=== PATIENT | female | born 1990 | race Caucasian/White ===

== ENCOUNTER 2018-08-25 18:21 | Emergency (ER) | payer OTHER ==
[2018-08-25] MEDS ORDERED: DIAZEPAM 5 MG TABLET PO ONE (21:05)
--- NOTE | 2018-08-25 21:07 | ER Document Report ---
HPI - HPI Patient complains to provider of: left upper back pain Time Seen by Provider: 08/25/18 20:54 Pain Level: 4 Context: Patient is a 27-year-old female that comes to the emergency department for chief complaint of left upper back pain. She states she has trouble turning her neck to the side. Symptoms started since this morning. She denies any obvious injury. She states it feels like there is a sharp spasm. She denies shortness of breath, chest pain, fever, headache, numbness. LMP within the past month. No daily medications or medical history reported. Past Medical History - General Information source: Patient - Social History Smoking Status: Never Smoker Frequency of alcohol use: None Drug Abuse: None Lives with: Family Family History: Reviewed & Not Pertinent Patient has suicidal ideation: No Patient has homicidal ideation: No - Medical History Medical History: Negative Renal/ Medical History: Denies: Hx Peritoneal Dialysis Surgical Hx: Negative - Immunizations Immunizations up to date: Yes Hx Diphtheria, Pertussis, Tetanus Vaccination: Yes Vertical Provider Document - CONSTITUTIONAL General Appearance: WD/WN, No Apparent Distress - INFECTION CONTROL TRAVEL OUTSIDE OF THE [place] IN LAST 30 DAYS: No - HEENT HEENT: Atraumatic, Normal ENT Exam, Normocephalic - NECK Neck: Normal Inspection - RESPIRATORY Respiratory: Breath Sounds Normal, No Respiratory Distress - CARDIOVASCULAR Cardiovascular: Regular Rate, Regular Rhythm - GI/ABDOMEN Gastrointestinal: Abdomen Soft, Abdomen Non-Tender - BACK Back: negative: Normal Inspection - Tender in the left trapezius muscle in area next to scapula as well, rigidity of muscle fibers with pain. Limited range of motion laterally of the neck, normal flexion and extension. Pain with lifting the left arm. Normal strength of the left arm. No midline tenderness, no saddle anesthesia, no signs of trauma. Normal strength, normal distal neurovascular exam. Course - Vital Signs Vital signs: Temp Pulse Resp BP Pulse Ox 98.5 F 91 12 117/66 99 08/25/18 18:36 08/25/18 18:36 08/25/18 18:36 08/25/18 18:36 08/25/18 18:36 Discharge - Discharge Clinical Impression: Upper back pain, Neck pain, Muscle spasm Condition: Stable Disposition: HOME, SELF-CARE Additional Instructions: Your evaluation is consistent with muscle spasm of the trapezius muscle on the left side. Rest, avoid lifting/twisting, apply heat to the area, you can take over-the- counter anti-inflammatory such as ibuprofen, take the Skelaxin muscle relaxer as prescribed. Follow-up with primary care. Return if you worsen including numbness, fever, vomiting, extremity swelling, or any other concerning or worsening symptoms. Prescriptions: Metaxalone [Skelaxin 800 mg Tablet] 800 mg PO ASDIR PRN #20 tablet PRN Reason: Referrals: SELENA MADISON NP [Primary Care Provider] - Follow up as needed
[2018-08-25 21:13] VITALS: BP 112/71
== END 2018-08-25 21:13 | disposition home or self-care (01) ==
LOC: ER 18:21
DX: M54.6 Pain in thoracic spine (principal); M54.2 Cervicalgia; M62.830 Muscle spasm of back
CPT/HCPCS: 99283